=== PATIENT | male | born 1965 | race Caucasian/White ===

== ENCOUNTER 2020-11-02 19:12 | Emergency (ER) | payer MEDICAID ==
[~2020-11-02] VITALS: Ht 157.5 cm; Wt 86.4 kg
[2020-11-02] MEDS ORDERED: PERTUSS(ACELL),DIPH,TET VAC/PF 0.5 ML SYRINGE IM. ONE (23:15)
[2020-11-02 23:35] VITALS: BP 144/91
== END 2020-11-03 00:08 | disposition home or self-care (01) ==
LOC: EMS 19:14
DX: S61.412A Laceration without foreign body of left hand, initial encounter (principal); W26.8XXA Contact with other sharp object(s), not elsewhere classified, initial encounter; Y93.89 Activity, other specified; Y92.89 Other specified places as the place of occurrence of the external cause; Y99.8 Other external cause status
CPT/HCPCS: 12001; 90471; 90715; 99283